=== PATIENT | male | born 1960 | race Caucasian/White ===

== ENCOUNTER 2017-02-01 07:45 | Inpatient (IN) | payer BC, OTHER ==
[~2017-02-01] VITALS: Ht 177.8 cm; Wt 103.5 kg
[~2017-02-01 07:45] MED LIST: ALPR-138 PO; CYCL-36 PO; DARV PO; IBUP-238 PO; SYNT175T PO; TAB-TAB PO
[2017-02-01 07:54] VITALS: BP 127/85; PULSE 82; RESP 16; TEMP 97.7; O2SAT 96
[2017-02-01] MEDS ORDERED: ALPR.25 PO (08:09)
[2017-02-01] MEDS ORDERED: LEVO.15 PO (08:09)
[2017-02-01] MEDS ORDERED: SYNT175T PO (08:09)
[2017-02-01] MEDS ORDERED: LISI10TA3 PO (08:09)
--- NOTE | 2017-02-01 08:21 | PD ---
HPI Chief Complaint: Abdominal Pain Time Seen by Provider: 08:19 Travel History International Travel<30 days: No Contact w/Intl Traveler<30days: No Traveled to known affect area: No History of Present Illness HPI 56-year-old male came to the emergency room with history of lower abdominal pain for past 4-5 days. Patient says that he has a dull ache constantly in his lower abdomen all across and on occasions he has severe sharp pain that makes him double over. No history of nausea or vomiting. No history of diarrhea. His last bowel movement was 3 days ago. Patient says he's never had this kind of pain before. No blood in his stools. He has been feeling little chills but he was afebrile in the ER. He is otherwise a healthy person. No radiation of the pain. No exacerbating or relieving factors. The patient's appetite has been low. No dysuria or hematuria. Currently he says his pain level was close to 0 out of 10. REPLACED BY [facility] Past Medical History Narrative Medical List of his past medical, surgical, social and family history is reviewed from the nursing note. Anxiety: Yes Diminished Hearing: No Hypertension: Yes Immunizations Current: Yes Thyroid Disease: Yes Influenza Vaccination: No Past Surgical History Other Surgery: Yes (CYST BACK REMOVED) Social History Alcohol Use: Yes Tobacco Use: No (dip) Substance Use: No Allergies-Medications (Allergen,Severity, Reaction): Coded Allergies: No Known Allergies (Verified , 02/01/17) Comments No known drug allergies. Reported Meds & Prescriptions Reported Meds & Active Scripts Active Reported Lisinopril 10 Mg Tab 10 Mg PO DAILY Synthroid (Levothyroxine Sodium) 150 Mcg Tab 150 Mcg PO DAILY Xanax (Alprazolam) 0.25 Mg Tab 0.25 Mg PO HS PRN Narrative Medication List of his home medications reviewed from the nursing note. Review of Systems Except as stated in HPI: all other systems reviewed are Neg Physical Exam Narrative GENERAL: Awake, alert, obese, mild distress SKIN: Warm and dry. HEAD: Atraumatic. Normocephalic. EYES: Pupils equal and round. No scleral icterus. No injection or drainage. ENT: No nasal bleeding or discharge. Mucous membranes pink and moist. NECK: Trachea midline. No JVD. CARDIOVASCULAR: Regular rate and rhythm. No murmur appreciated. RESPIRATORY: No accessory muscle use. Clear to auscultation. Breath sounds equal bilaterally. GASTROINTESTINAL: Abdomen soft, tenderness in the lower abdominal area on palpation, nondistended. Hepatic and splenic margins not palpable. MUSCULOSKELETAL: No obvious deformities. No clubbing. No cyanosis. No edema. NEUROLOGICAL: Awake and alert. No obvious cranial nerve deficits. Motor grossly within normal limits. Normal speech. PSYCHIATRIC: Appropriate mood and affect; insight and judgment normal. Data Data Last Documented VS Vital Signs Date Time Temp Pulse Resp B/P Pulse Ox O2 Delivery O2 Flow Rate FiO2 02/01/17 10:42 70 17 133/81 98 Room Air 02/01/17 07:54 97.7 Orders Complete Blood Count With Diff (02/01/17 08:24) Comprehensive Metabolic Panel (02/01/17 08:24) Lipase (02/01/17 08:24) Urinalysis - C+S If Indicated (02/01/17 08:24) Ct Abd/Pel W/O Iv Contrast (02/01/17 08:24) Iv Access Insert/Monitor (02/01/17 08:24) Ecg Monitoring (02/01/17 08:24) Oximetry (02/01/17 08:24) Sodium Chlor 0.9% 1000 Ml Inj (Ns 1000 M (02/01/17 08:24) Sodium Chloride 0.9% Flush (Ns Flush) (02/01/17 08:30) Blood Culture (02/01/17 10:14) Ciprofloxacin 400 Mg Premix (Cipro 400 M (02/01/17 10:15) Metronidazole 500 Mg Inj (Flagyl 500 Mg (02/01/17 10:15) Admit Order (Ed Use Only) (02/01/17 10:48) Consult General Surgery (02/01/17 ) Labs Laboratory Tests Test 02/01/17 02/01/17 08:30 10:21 White Blood Count 12.4 TH/MM3 Red Blood Count 4.36 MIL/MM3 Hemoglobin 14.7 GM/DL Hematocrit 41.2 % Mean Corpuscular Volume 94.4 FL Mean Corpuscular Hemoglobin 33.8 PG Mean Corpuscular Hemoglobin 35.8 % Concent Red Cell Distribution Width 12.5 % Platelet Count 280 TH/MM3 Mean Platelet Volume 7.8 FL Neutrophils (%) (Auto) 77.1 % Lymphocytes (%) (Auto) 10.6 % Monocytes (%) (Auto) 11.2 % Eosinophils (%) (Auto) 0.8 % Basophils (%) (Auto) 0.3 % Neutrophils # (Auto) 9.6 TH/MM3 Lymphocytes # (Auto) 1.3 TH/MM3 Monocytes # (Auto) 1.4 TH/MM3 Eosinophils # (Auto) 0.1 TH/MM3 Basophils # (Auto) 0.0 TH/MM3 CBC Comment DIFF FINAL Differential Comment Sodium Level 136 MEQ/L Potassium Level 4.2 MEQ/L Chloride Level 100 MEQ/L Carbon Dioxide Level 27.8 MEQ/L Anion Gap 8 MEQ/L Blood Urea Nitrogen 11 MG/DL Creatinine 0.99 MG/DL Estimat Glomerular Filtration 78 ML/MIN Rate Random Glucose 125 MG/DL Calcium Level 9.3 MG/DL Total Bilirubin 0.5 MG/DL Aspartate Amino Transf 25 U/L (AST/SGOT) Alanine Aminotransferase 45 U/L (ALT/SGPT) Alkaline Phosphatase 84 U/L Total Protein 8.4 GM/DL Albumin 3.4 GM/DL Lipase 103 U/L Urine Color YELLOW Urine Turbidity CLEAR Urine pH 6.0 Urine Specific [place] 1.017 Urine Protein TRACE mg/dL Urine Glucose (UA) NEG mg/dL Urine Ketones NEG mg/dL Urine Occult Blood NEG Urine Nitrite NEG Urine Bilirubin NEG Urine Urobilinogen LESS THAN 2.0 MG/DL Urine Leukocyte Esterase NEG Urine RBC LESS THAN 1 /hpf Urine WBC 1 /hpf Urine Squamous Epithelial <1 /hpf Cells Urine Mucus FEW /lpf Microscopic Urinalysis Comment CULT NOT INDICATED MDM Medical Decision Making Medical Screen Exam Complete: Yes Emergency Medical Condition: Yes Medical Record Reviewed: Yes Differential Diagnosis Acute diverticulitis, cystitis, renal colic Narrative Course 8:28 AM awaiting for the CT to be done and resulted. Patient's white count is slightly elevated. He is getting a liter IV fluid bolus. Awaiting for the chemistry. 10:20 AM CAT scan is resulted and shows sigmoid diverticulitis with possible extraluminal pericolonic fluid collection. Based on this there is a chance this could be a phlegmon. I've ordered IV ciprofloxacin and Flagyl for this patient. Patient should be admitted at this point for further IV antibiotic and possibly a repeat CT with IV contrast in 1-2 days. I have put a call out for the hospitalist as well as the surgeon. Awaiting for them to call back. 10:15 AM I spoke with the surgeon Dr. Garnett will consult on the patient. He agreed with the plan. Patient has been admitted to Dr. Bender. Procedures EKG Prior to Arrival: No Physician Communication Physician Communication Dr. Garnett, Dr. Bender Diagnosis Primary Impression: Acute diverticulitis Additional Impression: Colonic diverticular abscess Admitting Information Admitting Physician Requests: Admit Scripts Metronidazole (Flagyl)500 Mg [id number] Mg PO Q8HR #30 TAB Prov:Lebron Bender MD 02/03/17 Ciprofloxacin (Cipro)500 Mg [id number] Mg PO Q12HR #20 TAB Prov:Lebron Bender MD 02/03/17 Liu Lafleur MD Feb 01, 2017 08:21
[2017-02-01] MEDS ORDERED: SODIUM CHLOR 0.9% 1000 ML INJ 1,000 ML IV SCH (08:24)
[2017-02-01] MEDS ORDERED: SODIUM CHLORIDE 0.9% FLUSH 5 ML FLUSH IVF PRN (08:30)
[2017-02-01 09:11] LABS: AUTOMATED NEUTROPHIL # 9.6 TH/MM3 (1.8-7.7); BASOPHIL % 0.3 % (0.0-2.0); EOSINOPHIL # 0.1 TH/MM3 (0-0.4); EOSINOPHIL % 0.8 % (0.0-4.0); HEMATOCRIT 41.2 % (39.0-51.0); HEMO FLAGS DIFF FINAL; LYMPH % 10.6 % (9.0-44.0); LYMPHOCYTE # 1.3 TH/MM3 (1.0-4.8); MEAN CELL VOLUME 94.4 FL (80.0-100.0); MEAN CORPUSCULAR HEMOGLOBIN 33.8 PG (27.0-34.0); MEAN CORPUSCULAR HGB CONC 35.8 % (32.0-36.0); MONO % 11.2 % (0.0-8.0); NEUT % 77.1 % (16.0-70.0); PLATELET COUNT 280 TH/MM3 (150-450); RED BLOOD COUNT 4.36 MIL/MM3 (4.50-5.90); RED CELL DISTRIBUTION WIDTH 12.5 % (11.6-17.2); WHITE BLOOD COUNT 12.4 TH/MM3 (4.0-11.0)
[2017-02-01 09:42] LABS: ANION GAP 8 MEQ/L (5-15); AST (GOT) 25 U/L (15-37); BICARBONATE 27.8 MEQ/L (21.0-32.0); BLOOD UREA NITROGEN 11 MG/DL (7-18); CHLORIDE 100 MEQ/L (98-107); GLOMERULAR FILTRATION RATE 78 ML/MIN (>89); POTASSIUM 4.2 MEQ/L (3.5-5.1); SODIUM (NA) 136 MEQ/L (136-145)
[2017-02-01 09:45] LABS: ALKALINE PHOSPHATASE 84 U/L (45-117); ALT (GPT) 45 U/L (12-78); TOTAL BILIRUBIN ADULT 0.5 MG/DL (0.2-1.0)
--- NOTE | 2017-02-01 10:01 | RADRPT ---
EXAM DATE/TIME: 02/01/2017 09:30 [place] COMPARISON: No previous studies available for comparison. INDICATIONS : Lower abdominal pain and nausea for five days. ORAL CONTRAST: No oral contrast ingested. RADIATION DOSE: 9.96 CTDIvol (mGy) MEDICAL HISTORY : None SURGICAL HISTORY : None. ENCOUNTER: Initial ACUITY: 1 day PAIN SCALE: 7/10 LOCATION: Bilateral lower quadrant TECHNIQUE: Volumetric scanning of the abdomen and pelvis was performed. Using automated exposure control and ad justment of the mA and/or kV according to patient size, radiation dose was kept as low as reasonably achievable to obtain optimal diagnostic quality images. FINDINGS: LOWER LUNGS: There is a 3 mm noncalcified nodule in the right lower lobe. LIVER: There is focal fat adjacent to the falciform ligament. Overall density is within normal limits. Ther e is no dilation of the biliary tree. No calcified gallstones. SPLEEN: Normal size without lesion. PANCREAS: Within normal limits. KIDNEYS: Normal in size and shape. There is no mass, stone, or hydronephrosis. ADRENAL GLANDS: Within normal limits. VASCULAR: There is no aortic aneurysm. BOWEL/MESENTERY: The stomach and small bowel demonstrate no abnormality. Appendix is normal. There is sigmoid divertic ulosis. The mid sigmoid colon is abnormal with a 7.6 cm length segment of wall thickening and pericol onic inflammatory change. There is an ovoid area of focal fluid like material in the sigmoid mesocolo n measuring approximately 5.3 cm. No free air is seen ABDOMINAL WALL: Within normal limits. RETROPERITONEUM: There is no lymphadenopathy. BLADDER: No wall thickening or mass. REPRODUCTIVE: Within normal limits. INGUINAL: There is no lymphadenopathy or hernia. MUSCULOSKELETAL: No acute osseous abnormality. CONCLUSION: 1. Abnormal mid sigmoid colon with a 7.6 cm length segment of wall thickening and severe pericolonic inflammation and a focal 5.3 cm area of fluid. Findings are characteristic of acute sigmoid diverticu litis. No free air is present. 2. There is a 3 mm noncalcified pulmonary nodule in the right lower lobe. If the patient has no smoki ng history, no followup is needed. If there is any history of a smoking suggest one year followup non contrast chest CT. Also, suggest correlation with any prior outside imaging studies that could confir m longer-term stability. Kalin Fernandes MD on February 01, 2017 at 9:54 Board Certified Radiologist. This report was verified electronically.
[2017-02-01] MEDS ORDERED: CIPROFLOXACIN 400 MG PREMIX 200 ML IV ONE (10:15)
[2017-02-01] MEDS ORDERED: metroNIDAZOLE 500 MG INJ 100 ML IV ONE (10:15)
[2017-02-01 10:42] VITALS: BP 133/81; PULSE 70; RESP 17; O2SAT 98
[2017-02-01 10:52] LABS: BLOOD, URINE NEG (NEG); COMMENT (UR) CULT NOT INDICATED; CULTURE IF INDICATED CULT NOT INDICATED; GLUCOSE,URINE NEG (NEG); KETONE, URINE NEG (NEG); MUCUS URINE FEW /lpf (OCC); NITRITE,URINE NEG (NEG); SQUAMOUS EPITHELIAL CELL URINE <1 /hpf (0-5); URINE COLOR YELLOW (YELLW/STRAW)
[2017-02-01] MEDS ORDERED: ONDANSETRON HCL 4 MG/2 ML VIAL IVP PRN (11:45)
[2017-02-01] MEDS ORDERED: SODIUM CHLORIDE 0.9% FLUSH 5 ML FLUSH FLUSH PRN (11:45)
[2017-02-01] MEDS ORDERED: NALOXONE HCL 0.4 MG/ML AMP IV PRN (11:45)
[2017-02-01] MEDS: D5-1/2 NS + KCL 20 MEQ INJ 1,000 ML IV SCH ×2 (14:04→21:36)
[2017-02-01 16:00] VITALS: BP 128/79; PULSE 78; RESP 16; TEMP 98.9; O2SAT 98
[2017-02-01] MEDS: metroNIDAZOLE 500 MG INJ 100 ML IV SCH (17:38)
[2017-02-01] MEDS: CIPROFLOXACIN 400 MG PREMIX 200 ML IV SCH (18:35)
[2017-02-01 20:00] VITALS: BP 135/67; PULSE 72; RESP 18; TEMP 98.9; O2SAT 92
--- NOTE | 2017-02-01 20:59 | HHI.HP ---
History of Present Illness Service INTERNAL MEDICINE Primary Care Physician LEBRON BENDER MD Admission Diagnosis ACUTE DIVERTICULITIS. POSSIBLE DIVERTICULAR ABSCESS. Diagnoses: History of Present Illness This patient is a 56 year old male who reports that he started with abdominal pain in the lower abdomen area about three days prior to admission. He initially attributed the symptoms to some type of viral activity. He continued to worsen with the pain becoming unrelenting and being associated with much nausea. He could bear the pain no longer on the day of admission and presented to the [facility] Emergency Room for evaluation. His assessment in the emergency room revealed the presence of diverticulitis and possible abscess. He is admitted as an inpatient to further assess his status and treat aggressively. He denies any recent travel, recent infection or recent trauma. Review of Systems Gastrointestinal: COMPLAINS OF: Abdominal pain, Diarrhea, Nausea Past Family Social History Allergies: Coded Allergies: No Known Allergies (Verified , 02/01/17) Past Medical History 1. Hypertension. 2. Hypothyroidism. 3. Anxiety Disorder. 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 Past Surgical History Cyst removal from the back. Reported Medications 1. Levothyroxine 0.015 mg daily. 2. Alprazolam 0.25 mg daily at bedtime, as needed. 3. Lisinopril 10 mg daily. Social History This patient is of status. He has a GED high equivalency. He is a nonsmoker, but states that periodically he dips smokeless tobacco. His alcohol intake is reported as daily. He denies any use of recreational drugs. Physical Exam Vital Signs Vital Signs Date Time Temp Pulse Resp B/P Pulse Ox O2 Delivery O2 Flow Rate FiO2 02/01/17 16:00 98.9 78 16 128/79 98 02/01/17 13:20 Room Air 02/01/17 10:42 70 17 133/81 98 Room Air 02/01/17 07:54 97.7 82 16 127/85 96 Physical Exam GENERAL: This is a well-nourished, well-developed patient. He is in moderate distress for abdominal pain. SKIN: No rashes, ecchymoses or lesions. Cool and dry. HEAD: Atraumatic. Normocephalic. No temporal or scalp tenderness. EYES: Pupils equal round and reactive. Extraocular motions of the eyes are intact. No scleral icterus. No injection or drainage. ENT: Nose without bleeding or purulent drainage. Throat without erythema or tonsillar hypertrophy or exudate. Uvula midline. Airway patent. NECK: Trachea midline. No JVD, thyromegaly, carotid bruits or lymphadenopathy. Supple, nontender with no meningeal signs. CARDIOVASCULAR: Regular rate and rhythm without murmurs, gallops or rubs. RESPIRATORY: Clear to auscultation. Breath sounds equal bilaterally. No wheezes , rales or rhonchi. GASTROINTESTINAL: Abdomen is soft. There is tenderness in the lower abdominal area with low bowel sounds present. It is nondistended. No hepato-splenomegaly , or palpable masses. No guarding. MUSCULOSKELETAL: Extremities are without clubbing, cyanosis, or edema. No joint tenderness, effusion or calf tenderness. Negative Homans sign bilaterally. NEUROLOGICAL: Awake and alert. Cranial nerves II through XII intact. Motor and sensory grossly within normal limits. Five out of 5 muscle strength in all muscle groups. Normal speech. Laboratory Laboratory Tests Test 02/01/17 02/01/17 08:30 10:21 White Blood Count 12.4 Red Blood Count 4.36 Hemoglobin 14.7 Hematocrit 41.2 Mean Corpuscular Volume 94.4 Mean Corpuscular Hemoglobin 33.8 Mean Corpuscular Hemoglobin 35.8 Concent Red Cell Distribution Width 12.5 Platelet Count 280 Mean Platelet Volume 7.8 Neutrophils (%) (Auto) 77.1 Lymphocytes (%) (Auto) 10.6 Monocytes (%) (Auto) 11.2 Eosinophils (%) (Auto) 0.8 Basophils (%) (Auto) 0.3 Neutrophils # (Auto) 9.6 Lymphocytes # (Auto) 1.3 Monocytes # (Auto) 1.4 Eosinophils # (Auto) 0.1 Basophils # (Auto) 0.0 CBC Comment DIFF FINAL Differential Comment Sodium Level 136 Potassium Level 4.2 Chloride Level 100 Carbon Dioxide Level 27.8 Anion Gap 8 Blood Urea Nitrogen 11 Creatinine 0.99 Estimat Glomerular Filtration 78 Rate Random Glucose 125 Calcium Level 9.3 Total Bilirubin 0.5 Aspartate Amino Transf 25 (AST/SGOT) Alanine Aminotransferase 45 (ALT/SGPT) Alkaline Phosphatase 84 Total Protein 8.4 Albumin 3.4 Lipase 103 Urine Color YELLOW Urine Turbidity CLEAR Urine pH 6.0 Urine Specific [place] 1.017 Urine Protein TRACE Urine Glucose (UA) NEG Urine Ketones NEG Urine Occult Blood NEG Urine Nitrite NEG Urine Bilirubin NEG Urine Urobilinogen LESS THAN 2.0 Urine Leukocyte Esterase NEG Urine RBC LESS THAN 1 Urine WBC 1 Urine Squamous Epithelial <1 Cells Urine Mucus FEW Microscopic Urinalysis Comment CULT NOT INDICATED Date/Time Procedure Status Source Growth 02/01/17 10:20 Aerobic Blood Culture Received Blood Peripheral Pending 02/01/17 10:20 Anaerobic Blood Culture Received Blood Peripheral Pending Result Diagram: 02/01/17 0830 02/01/17 0830 Assessment and Plan Assessment and Plan ASSESSMENT 1. Acute Diverticulitis. 2. Possible Diverticular Abscess. 3. Hypothyroidism. 4. Hypertension. 5. Anxiety Disorder. PLAN 1. Admit to the hospital as an Inpatient. 2. Intravenous analgesia. 3. Intravenous antibiotics. 4. Intravenous hydration and electrolyte repletion. 5. Consultation to General Surgery. 6. N.P.O. status. 7. DVT, PE and PUD prophylaxis. Lebron Bender MD Feb 01, 2017 20:59
[2017-02-01] MEDS: PANTOPRAZOLE SODIUM 40 MG VIAL IV PUSH SCH (21:35)
[2017-02-01] MEDS: SODIUM CHLORIDE 0.9% FLUSH 5 ML FLUSH FLUSH SCH (21:36)
[2017-02-01] MEDS ORDERED: LORazepam 2 MG/ML VIAL IV ONE (22:30)
[2017-02-02] VITALS: BP 125/61; PULSE 75; RESP 18; TEMP 99.1; O2SAT 95
[2017-02-02] MEDS: metroNIDAZOLE 500 MG INJ 100 ML IV SCH ×3 (02:27→17:29)
[2017-02-02 04:00] VITALS: BP 140/83; PULSE 65; RESP 18; TEMP 99; O2SAT 95
[2017-02-02] MEDS ORDERED: LEVOTHYROXINE SODIUM 100 MCG VIAL IV PUSH SCH (06:00)
[2017-02-02] MEDS: CIPROFLOXACIN 400 MG PREMIX 200 ML IV SCH ×2 (06:20→18:48)
--- NOTE | 2017-02-02 07:23 | MB ---
cc: WENDY CAIN DATE OF CONSULTATION 02/01/2017 REASON FOR CONSULTATION Complications of diverticulitis PERSON REQUESTING CONSULTATION Dr. Aurelio Bender HISTORY OF PRESENT ILLNESS The patient is a 56-year-old male with no significant past medical history who presented to the emergency department at [facility] with five days of increasing left lower quadrant pain. The patient states that he has not had a bowel in three days and pain was in the left lower quadrant and felt like it would be better if he would have bowel movement. The patient thought he was having a viral infection, gastroenteritis that was going around. The patient did have some fevers and chills initially, but denies them currently. The patient denies any nausea, vomiting or any other complaints. The patient underwent evaluation in the emergency department and was found to have a CT scan that was consistent with complicated diverticulitis with a 5 cm phlegmon type area adjacent to inflamed sigmoid colon. There were no other acute findings. The patient was admitted to the medical service for management of diverticulitis with IV antibiotics. Surgery is consulted for evaluation. REVIEW OF SYSTEMS A 12-point review of systems obtained from the patient is negative except for the pertinent positives mentioned above in the history present illness. PAST MEDICAL HISTORY Hypertension PAST SURGICAL HISTORY A back cyst. ALLERGIES NO KNOWN DRUG ALLERGIES. MEDICATIONS 1. Lisinopril 2. Synthroid 3. Xanax SOCIAL HISTORY The patient uses alcohol occasionally. Denies cigarette or illicit drug use. FAMILY HISTORY Noncontributory. PHYSICAL EXAM VITAL SIGNS: Temperature 97.7 degrees, pulse rate 70, respiratory rate 17, blood pressure 133/81, O2 saturation 98%. GENERAL: The patient is a well-developed, well-nourished male in no acute distress. HEAD, EYES, EARS, NOSE, AND THROAT: Head is normocephalic, atraumatic. Pupils round and reactive to accommodation and light. Sclerae is anicteric. Mucous membranes are moist. NECK: Supple. No JVD. LUNGS: Clear to auscultation bilaterally. Nonlabored breathing pattern. HEART: Regular rate and rhythm. No murmurs. ABDOMEN: Soft, nondistended. Some subjective tenderness in the left upper quadrant without rebound tenderness or peritonitis. Normal bowel sounds. No ascites. No organomegaly. BACK: No CVA tenderness. EXTREMITIES: No clubbing, cyanosis or edema. NEUROLOGIC: The patient's is alert and oriented, awake following commands, 5/5 strength x4 extremities. Nonfocal. Cranial nerves II-XII are grossly intact. ASSESSMENT/PLAN The patient is a 56-year-old male with complicated diverticulitis first episode with bowel sepsis or peritonitis. I feel the patient is an appropriate candidate for nonoperative management and agree with current management with n.p.o. for bowel rest, IV fluids and IV antibiotics. We will follow along with the patient. The patient states that he significantly feels better at this time and most of his pain is gone and has had multiple bowel movements. I do agree with advancing this patient's diet in the a.m. to clear liquids and see if he has any recurrent pain and possibly transition to full liquids and oral antibiotics over the next 48 hours. I discussed this plan with him and he is in agreement with the plan. Thank you very much for this consultation. We will follow along with the patient. MD ANDRA Carroll/JEFF /7:22 PM /7:13 AM
[2017-02-02 08:00] VITALS: BP 116/73; PULSE 62; RESP 20; TEMP 98.3; O2SAT 93
[2017-02-02] MEDS: SODIUM CHLORIDE 0.9% FLUSH 5 ML FLUSH FLUSH SCH ×2 (08:35→21:00)
[2017-02-02] MEDS: D5-1/2 NS + KCL 20 MEQ INJ 1,000 ML IV SCH ×2 (08:37→17:29)
[2017-02-02 09:04] LABS: AUTOMATED NEUTROPHIL # 4.4 TH/MM3 (1.8-7.7); BASOPHIL # 0.1 TH/MM3 (0-0.2); BASOPHIL % 0.8 % (0.0-2.0); EOSINOPHIL # 0.2 TH/MM3 (0-0.4); EOSINOPHIL % 3.5 % (0.0-4.0); HEMATOCRIT 38.4 % (39.0-51.0); HEMO FLAGS DIFF FINAL; LYMPHOCYTE # 1.4 TH/MM3 (1.0-4.8); MEAN CELL VOLUME 94.9 FL (80.0-100.0); MEAN CORPUSCULAR HEMOGLOBIN 33.3 PG (27.0-34.0); MEAN CORPUSCULAR HGB CONC 35.1 % (32.0-36.0); MONO % 12.1 % (0.0-8.0); NEUT % 63.6 % (16.0-70.0); PLATELET COUNT 245 TH/MM3 (150-450); RED BLOOD COUNT 4.05 MIL/MM3 (4.50-5.90); RED CELL DISTRIBUTION WIDTH 12.5 % (11.6-17.2)
[2017-02-02 09:31] LABS: BICARBONATE 27.8 MEQ/L (21.0-32.0); INDIRECT BILIRUBIN 0.4 MG/DL (0.0-0.8); MAGNESIUM 2.2 MG/DL (1.5-2.5); TOTAL BILIRUBIN ADULT 0.5 MG/DL (0.2-1.0)
[2017-02-02 12:00] VITALS: BP 126/70; PULSE 64; RESP 22; TEMP 97.4; O2SAT 99
--- NOTE | 2017-02-02 12:09 | HHI.PR ---
Subjective Subjective Notes So happy to have clear liquids this morning Objective Vitals/I&O Vital Signs Date Time Temp Pulse Resp B/P Pulse Ox O2 Delivery O2 Flow Rate FiO2 02/02/17 08:15 Room Air 02/02/17 08:00 98.3 62 20 116/73 93 Labs Laboratory Tests Test 02/02/17 08:23 White Blood Count 7.0 Red Blood Count 4.05 Hemoglobin 13.5 Hematocrit 38.4 Mean Corpuscular Volume 94.9 Mean Corpuscular Hemoglobin 33.3 Mean Corpuscular Hemoglobin 35.1 Concent Red Cell Distribution Width 12.5 Platelet Count 245 Mean Platelet Volume 7.7 Neutrophils (%) (Auto) 63.6 Lymphocytes (%) (Auto) 20.0 Monocytes (%) (Auto) 12.1 Eosinophils (%) (Auto) 3.5 Basophils (%) (Auto) 0.8 Neutrophils # (Auto) 4.4 Lymphocytes # (Auto) 1.4 Monocytes # (Auto) 0.8 Eosinophils # (Auto) 0.2 Basophils # (Auto) 0.1 CBC Comment DIFF FINAL Differential Comment Sodium Level 137 Potassium Level 4.0 Chloride Level 102 Carbon Dioxide Level 27.8 Anion Gap 7 Blood Urea Nitrogen 9 Creatinine 0.96 Estimat Glomerular Filtration 81 Rate Random Glucose 104 Calcium Level 8.5 Magnesium Level 2.2 Total Bilirubin 0.5 Direct Bilirubin 0.1 Indirect Bilirubin 0.4 Aspartate Amino Transf 32 (AST/SGOT) Alanine Aminotransferase 47 (ALT/SGPT) Alkaline Phosphatase 74 Total Protein 7.3 Albumin 2.8 Date/Time Procedure Status Source Growth 02/01/17 10:20 Aerobic Blood Culture - Preliminary Resulted Blood Peripheral NO GROWTH IN 1 DAY 02/01/17 10:20 Anaerobic Blood Culture - Preliminary Resulted Blood Peripheral NO GROWTH IN 1 DAY Cardiovascular: Regular Lungs: Clear Abdomen: Non-distended, Non-tender Extremities: No edema A/P Assessment and Plan 56 year old male with 1st episode of acute diverticulitis with diverticular abscess -WBC improved today -Start clears -Continue IV antibiotics -OOB and mobilize Attending Statement The exam, history, and the medical decision-making described in the above note were completed with the assistance of the mid-level provider. I reviewed and agree with the findings presented. I attest that I had a [id number] encounter with the patient on the same day, and personally performed and documented my assessment and findings in the medical record. abdominal exam stable, minimal tenderness in LLQ, improved continue non-operative management Ramya Paulson Feb 02, 2017 12:09 Gokul Garnett MD Feb 06, 2017 01:44
[2017-02-02] MEDS ORDERED: ALPRAZolam 0.25 MG TAB PO PRN (13:30)
[2017-02-02 16:00] VITALS: BP 115/61; PULSE 64; RESP 18; TEMP 98.6; O2SAT 96
[2017-02-02 20:00] VITALS: BP 117/74; PULSE 64; RESP 18; TEMP 99.2; O2SAT 95
--- NOTE | 2017-02-02 20:33 | HHI.PR ---
Subjective Remarks He states that he feels quite comfortable at this time. He appears to have tolerated the clear liquid diet well and without complaints. There have been no other adverse complaints voiced. Objective - Vital Signs Date Time Temp Pulse Resp B/P Pulse Ox O2 Delivery O2 Flow Rate FiO2 02/02/17 16:00 98.6 64 18 115/61 96 02/02/17 12:00 97.4 64 22 126/70 99 02/02/17 08:15 Room Air 02/02/17 08:00 98.3 62 20 116/73 93 02/02/17 04:00 99.0 65 18 140/83 95 02/02/17 00:00 99.1 75 18 125/61 95 02/01/17 21:40 Room Air I/O 02/01/17 02/01/17 02/01/17 02/02/17 02/02/17 02/02/17 07:00 15:00 23:00 07:00 15:00 23:00 Intake Total 452 ml 867 ml 1874 ml Balance 452 ml 867 ml 1874 ml Intake Oral 0 ml 0 ml 900 ml IV Total 452 ml 867 ml 974 ml # Voids 1 2 3 # Bowel Movements 1 0 1 Result Diagram: 02/02/1723 02/02/17 0823 Objective Remarks GENERAL: Alert and oriented. No acute distress. SKIN: Warm and dry. HEAD: Normocephalic. EYES: No scleral icterus. No injection or drainage. NECK: Supple, trachea midline. No JVD or lymphadenopathy. CARDIOVASCULAR: Regular rate and rhythm without murmurs, gallops or rubs. RESPIRATORY: Breath sounds equal bilaterally. No accessory muscle use. GASTROINTESTINAL: Abdomen is soft and nondistended. There is mild tenderness in the lower abdomen areas. No masses. MUSCULOSKELETAL: Free range of motion. No cyanosis, or edema. BACK: Nontender without obvious deformity. No CVA tenderness. A/P Assessment and Plan ASSESSMENT 1. Acute Diverticulitis. 2. Diverticular Abscess. 3. Hypothyroidism. 4. Hypertension. 5. Anxiety Disorder. PLAN 1. Continue with the current intravenous antibiotics. 2. Continue with intravenous hydration. 3. Advance diet to full liquids and observe on tomorrow. 4. Follow up laboratory assessment. 5. DVT, PE and PUD prophylaxis. Lebron Bender MD Feb 02, 2017 20:33
[2017-02-02] MEDS: PANTOPRAZOLE SODIUM 40 MG VIAL IV PUSH SCH (22:07)
[2017-02-03] VITALS: BP 106/60; PULSE 63; RESP 18; TEMP 98; O2SAT 97
[2017-02-03] MEDS: metroNIDAZOLE 500 MG INJ 100 ML IV SCH (03:01)
[2017-02-03 04:00] VITALS: BP 126/65; PULSE 63; RESP 18; TEMP 98.1; O2SAT 97
[2017-02-03] MEDS: D5-1/2 NS + KCL 20 MEQ INJ 1,000 ML IV SCH (04:00)
[2017-02-03] MEDS ORDERED: LEVOTHYROXINE SODIUM 150 MCG TAB PO SCH ×2 (06:00)
[2017-02-03] MEDS: CIPROFLOXACIN 400 MG PREMIX 200 ML IV SCH (06:00)
[2017-02-03 07:34] LABS: AUTOMATED NEUTROPHIL # 2.9 TH/MM3 (1.8-7.7); BASOPHIL % 0.8 % (0.0-2.0); EOSINOPHIL # 0.3 TH/MM3 (0-0.4); EOSINOPHIL % 5.4 % (0.0-4.0); HEMATOCRIT 39.9 % (39.0-51.0); LYMPH % 24.8 % (9.0-44.0); LYMPHOCYTE # 1.3 TH/MM3 (1.0-4.8); MEAN CELL VOLUME 93.9 FL (80.0-100.0); MEAN CORPUSCULAR HGB CONC 35.1 % (32.0-36.0); MONO % 12.8 % (0.0-8.0); NEUT % 56.2 % (16.0-70.0); PLATELET COUNT 255 TH/MM3 (150-450); RED BLOOD COUNT 4.24 MIL/MM3 (4.50-5.90); RED CELL DISTRIBUTION WIDTH 12.6 % (11.6-17.2); WHITE BLOOD COUNT 5.2 TH/MM3 (4.0-11.0)
[2017-02-03 07:42] LABS: HEMO FLAGS DIFF FINAL
[2017-02-03 07:56] LABS: BICARBONATE 27.4 MEQ/L (21.0-32.0); MAGNESIUM 2.2 MG/DL (1.5-2.5); POTASSIUM 3.9 MEQ/L (3.5-5.1)
[2017-02-03 08:00] VITALS: BP 112/56; PULSE 61; RESP 18; TEMP 97.8; O2SAT 91
[2017-02-03] MEDS: SODIUM CHLORIDE 0.9% FLUSH 5 ML FLUSH FLUSH SCH (08:06)
--- NOTE | 2017-02-03 08:08 | HHI.PR ---
Subjective Subjective Notes Resting in bed Wants to try to go home today Objective Vitals/I&O Vital Signs Date Time Temp Pulse Resp B/P Pulse Ox O2 Delivery O2 Flow Rate FiO2 02/03/17 04:00 98.1 63 18 126/65 97 02/02/17 22:11 Room Air Labs Laboratory Tests Test 02/02/17 02/03/17 08:23 06:31 White Blood Count 7.0 5.2 Red Blood Count 4.05 4.24 Hemoglobin 13.5 14.0 Hematocrit 38.4 39.9 Mean Corpuscular Volume 94.9 93.9 Mean Corpuscular Hemoglobin 33.3 33.0 Mean Corpuscular Hemoglobin 35.1 35.1 Concent Red Cell Distribution Width 12.5 12.6 Platelet Count 245 255 Mean Platelet Volume 7.7 7.8 Neutrophils (%) (Auto) 63.6 56.2 Lymphocytes (%) (Auto) 20.0 24.8 Monocytes (%) (Auto) 12.1 12.8 Eosinophils (%) (Auto) 3.5 5.4 Basophils (%) (Auto) 0.8 0.8 Neutrophils # (Auto) 4.4 2.9 Lymphocytes # (Auto) 1.4 1.3 Monocytes # (Auto) 0.8 0.7 Eosinophils # (Auto) 0.2 0.3 Basophils # (Auto) 0.1 0.0 CBC Comment DIFF FINAL DIFF FINAL Differential Comment Sodium Level 137 140 Potassium Level 4.0 3.9 Chloride Level 102 104 Carbon Dioxide Level 27.8 27.4 Anion Gap 7 9 Blood Urea Nitrogen 9 9 Creatinine 0.96 0.96 Estimat Glomerular Filtration 81 81 Rate Random Glucose 104 109 Calcium Level 8.5 8.5 Magnesium Level 2.2 2.2 Total Bilirubin 0.5 Direct Bilirubin 0.1 Indirect Bilirubin 0.4 Aspartate Amino Transf 32 (AST/SGOT) Alanine Aminotransferase 47 (ALT/SGPT) Alkaline Phosphatase 74 Total Protein 7.3 Albumin 2.8 Date/Time Procedure Status Source Growth 02/01/17 10:20 Aerobic Blood Culture - Preliminary Resulted Blood Peripheral NO GROWTH IN 1 DAY 02/01/17 10:20 Anaerobic Blood Culture - Preliminary Resulted Blood Peripheral NO GROWTH IN 1 DAY Cardiovascular: Regular Lungs: Clear Abdomen: Non-distended, Non-tender Extremities: No edema A/P Assessment and Plan 56 year old male with 1st episode of acute diverticulitis with diverticular abscess -WBC 5 today -Advance to fulls -Transition to PO antibiotics -If tolerates diet okay to DC from GS standpoint -Follow up with Dr. Garnett in about 10 days -OOB and mobilize Attending Statement The exam, history, and the medical decision-making described in the above note were completed with the assistance of the mid-level provider. I reviewed and agree with the findings presented. I attest that I had a [id number] encounter with the patient on the same day, and personally performed and documented my assessment and findings in the medical record. patient tolerating diet, abdominal exam remains non-surgical Ramya Paulson Feb 03, 2017 08:08 Gokul Garnett MD Feb 06, 2017 01:48
[2017-02-03] MEDS ORDERED: CIPROFLOXACIN 500 MG TAB PO SCH (09:00)
--- NOTE | 2017-02-03 13:57 | HHI.PR ---
Subjective Remarks He denies any major adverse symptoms. He is tolerating the oral soft diet without any problems. Objective - Vital Signs Date Time Temp Pulse Resp B/P Pulse Ox O2 Delivery O2 Flow Rate FiO2 02/03/17 08:20 Room Air 02/03/17 04:00 98.1 63 18 126/65 97 02/03/17 00:00 98.0 63 18 106/60 97 02/02/17 22:11 Room Air 02/02/17 20:00 99.2 64 18 117/74 95 02/02/17 16:00 98.6 64 18 115/61 96 I/O 02/02/17 02/02/17 02/02/17 02/03/17 02/03/17 02/03/17 07:00 15:00 23:00 07:00 15:00 23:00 Intake Total 867 ml 1874 ml 1528 ml 912 ml Balance 867 ml 1874 ml 1528 ml 912 ml Intake Oral 0 ml 900 ml 800 ml 240 ml IV Total 867 ml 974 ml 728 ml 672 ml # Voids 2 3 2 1 # Bowel Movements 0 1 0 0 Result Diagram: 02/03/1763002/03/17630 Objective Remarks GENERAL: Alert and oriented. SKIN: Warm and dry. HEAD: Normocephalic. EYES: No scleral icterus. No injection or drainage. NECK: Supple, trachea midline. No JVD or lymphadenopathy. CARDIOVASCULAR: Regular rate and rhythm without murmurs, gallops, or rubs. RESPIRATORY: Breath sounds equal bilaterally. No accessory muscle use. GASTROINTESTINAL: Abdomen soft, non-tender, nondistended. MUSCULOSKELETAL: No cyanosis, or edema. BACK: Nontender without obvious deformity. No CVA tenderness. A/P Assessment and Plan ASSESSMENT 1. Acute Diverticulitis. 2. Diverticular Abscess. MEDICALLY STABLE. PLAN 1. Continue with the current antibiotics. 2. Keep up very good hydration. HOME TODAY WITH CLOSE OUTPATIENT FOLLOW UP. Lebron Bender MD Feb 03, 2017 13:57
[2017-02-03] MEDS ORDERED: metroNIDAZOLE 500 MG TAB PO SCH (14:00)
[2017-02-03] MEDS ORDERED: CIPR-9 PO (14:05)
[2017-02-03] MEDS ORDERED: METR-1 PO (14:05)
== END 2017-02-03 16:43 | disposition home or self-care (01) | DRG 392 ==
LOC: NEPE 07:45 → NEDA 10:50 → N04A 13:00 → N04B 13:31
PROVIDERS: ADMIT Internal Medicine; ATTEND Internal Medicine
DX: K57.20 Diverticulitis of large intestine with perforation and abscess without bleeding (principal); I10 Essential (primary) hypertension; E03.9 Hypothyroidism, unspecified; F41.9 Anxiety disorder, unspecified; H54.42 Blindness, left eye, normal vision right eye; Z72.0 Tobacco use
CPT/HCPCS: 74176; 80048; 80053; 80076; 81001; 83690; 83735; 85025; 87040; 87205; 96361; 96374; 96375; C9113; J0744; J2060; J3480; J7030